=== PATIENT | female | born 1955 | race Caucasian/White ===

== ENCOUNTER → 2017-10-18 | Outpatient (CLI) | payer BC ==
[2014-11-12 15:44] VITALS: BMI 57.7
[~2017-10-18] MED LIST: ACE3 PO; ACET-3017 PO; ALBU2.5V36 INH; ALBU8.5H IH; ALLO-2 PO; ALLO100T70 PO; ASPI-1441 PO; ASPI-1471 PO; ATOR20TA65 PO; ATOR40TA69 PO; AZI250 PO; AZIT-18 PO; AZIT500T47 PO; BENZ200C15 PO; BUPR-134 PO; BUPR-149 PO; BUPR-472 PO; CALC-733 PO; CETI-169 PO; CHOL100034 PO; CHOL10005 PO; CLAR-13 PO; CPAP MC; CYCL10TA29 PO; DICL100G39 TOP; DOXY-179 PO; DOXY-181 PO; DULO30CA6 PO; ESCI10TA8 PO; FLU150 PO; FLU60SYR30 IM ONLY; FLUT16SP19 NS; FURO-45 PO; GLIM2TAB43 PO; GLIM4TAB50 PO; GLY5 PO; HYDR12.561 PO; INDO50CA92 PO; IPRA3AMP21 IH; LANI SUBQ; LANTIS; LEV100 PO; LEV125 PO; LEV500 PO; LEVO150T78 PO; LEVO750T27 PO; LIS20 PO; LISI-362 PO; LISI5TAB25 PO; LOR5/325 PO; METF-409 PO; METF-410 PO; METF-420 PO; METF500T4 PO; METH4TAB66 PO; MONT10TA4 PO; MULT-820 PO; NYST15CR32 TP; OXYC-865 PO; PRED20TA6 PO; PROM-110 PO; PROM5SYR PO; Return to Work; SIMV-54 PO; SITA50TA7; TRI40I IM; VALA100059 PO; VERIFIED; ZOST19404 IM; [UNRECOGNIZED DRUG - CODE] PO; [UNRECOGNIZED DRUG - OTHER]
== END ==
LOC: LAB 10:14
PROVIDERS: ATTEND Nurse Practitioner Family
DX: E11.9 Type 2 diabetes mellitus without complications (principal); E78.00 Pure hypercholesterolemia, unspecified; N18.9 Chronic kidney disease, unspecified; M10.9 Gout, unspecified
CPT/HCPCS: 36415; 82040; 82247; 82310; 82374; 82435; 82465; 82565; 82947; 83036; 83718; 84075; 84132; 84155; 84295; 84450; 84460; 84478; 84520; 84550

== ENCOUNTER → 2017-10-27 | Outpatient (CLI) | payer BC ==
[2014-11-12 15:44] VITALS: BMI 57.7
== END ==
LOC: LAB 15:08
PROVIDERS: ATTEND Nurse Practitioner Family
DX: E83.52 Hypercalcemia (principal)
CPT/HCPCS: 36415; 82306; 82310; 82977; 83970

== ENCOUNTER → 2018-09-12 | Outpatient (REF) ==
[2014-11-12 15:44] VITALS: BMI 57.7
[~2018-09-12] MED LIST changes: +INDO-23 PO; -INDO50CA92 PO; +IPRA3AMP10 IH; -IPRA3AMP21 IH; -METF-410 PO; -METF-420 PO; +METF-450 PO; +METF-452 PO
--- NOTE | 2018-09-12 15:53 | RADIOLOGY IMAGING REPORT ---
FACILITY: [facility] PATIENT NAME: Eneida Bey : 1955 MR: [id number] V: [id number] EXAM DATE: ORDERING PHYSICIAN: WILTON DYER TECHNOLOGIST: Location[place] [facility] [place] Patient: Eneida Bey : 1955 Visit/Account:[id number] Date of Sevice: 09/12/2018 XR WRIST 3 OR MORE VIEWS HISTORY: Bilateral carpal tunnel syndrome x20 years. Increasing lately. Additional history: None COMPARISON: None. FINDINGS: Two views of both right and left wrist demonstrate normal osseous anatomy. No degenerative changes s een in the joints. Soft tissues normal. IMPRESSION: Radiographically normal bilateral wrists. Report Dictated By: Johnie Rabago MD at 09/12/2018 3:48 PM Report E-Signed By: Johnie Rabago MD at 09/12/2018 3:49 PM WSN:[id number]
== END ==
LOC: RAD 12:44
PROVIDERS: ATTEND Family Medicine
DX: G56.03 Carpal tunnel syndrome, bilateral upper limbs (principal)

== ENCOUNTER 2018-12-21 16:18 | Emergency (ER) | payer SELFPAY ==
[2014-11-12 15:44] VITALS: Wt 136.1 kg
--- NOTE | 2018-12-21 16:23 | ER Report ---
History and Physical Time Seen By MD: 16:22 HPI/ROS CHIEF COMPLAINT: Concern about pneumonia HISTORY OF PRESENT ILLNESS: This is a 63-year-old female presents to the emergency department for concerns of pneumonia. Patient states she's had a cough for about one week, she's had aches and chills. Saw her primary care provider at the [facility] on December 19, was given azithromycin, took 500 mg daily for 3 days. Patient states no improvement. She noted her productive cough is getting worse. No chest pain or shortness of breath. Intermittent nausea with coughing. No vomiting. No diarrhea. She also states that the coughing episodes to exacerbate her ventral hernia pain that is intermittently. REVIEW OF SYSTEMS: Constitutional: As above. Eyes: No discharge. ENT: No sore throat. Cardiovascular: No chest pain, no palpitations. Respiratory: As above. Gastrointestinal: As above. Genitourinary: No hematuria. Musculoskeletal: No back pain. Skin: No rashes. Neurological: No headache. Allergies: Coded Allergies: penicillin G (Verified Allergy, Mild, 10/23/16) Home Meds Active Scripts Levofloxacin 750 Mg Tab (LEVOFLOXACIN 750 MG TAB) 750 Mg Tablet, 750 MG PO DAILY for 6 Days, #6 TAB Prov:RADHA HAYES [employer]-BC 12/21/18 Prednisone (PREDNISONE) 20 Mg Tablet, 20 MG PO BID, #10 TAB Prov:RADHA HAYES [facility] 12/21/18 Reported Medications Atorvastatin Calcium (LIPITOR) 40 Mg Tablet, 2 TAB PO QDAY, TAB 12/21/18 Gabapentin (GABAPENTIN) 300 Mg Capsule, 300 MG PO BID, CAPSULE 12/21/18 Multivitamin With Minerals (MULTIPLE VITAMIN) 1 Each Tablet, 1 EACH PO QDAY, TAB 12/21/18 Levothyroxine Sodium (LEVOTHYROXINE SODIUM) 75 Mcg Tablet, 75 MCG PO QDAY, TAB 12/21/18 Lisinopril (LISINOPRIL) 20 Mg Tablet, 20 MG PO QDAY, TAB 12/21/18 Duloxetine Hcl (CYMBALTA) 60 Mg Capsule.dr, 60 MG PO QDAY, #5 CAP 12/21/18 Cholecalciferol (Vitamin D3) (VITAMIN D3) 1,000 Unit Tablet, 1000 UNIT PO QDAY, TAB 12/21/18 Methocarbamol (METHOCARBAMOL) 750 Mg Tablet, 750 MG PO BID 12/21/18 Fluticasone Prop 50 Mcg Ns (FLONASE 50 MCG NS) 16 Gm [place].susp, 1 SPRAY NS BID, BOT 12/21/18 Albuterol Sulfate 90 Mcg/Act (PROAIR HFA 90 MCG/ACT) 8.5 Gm Hfa.aer.ad, 1-2 PUFF IH 3-4XD, INHALER 12/21/18 Discontinued Reported Medications Calcium Carbonate/Vitamin D3 (CALCIUM 500 + VIT D 400 TABLET) 1 Each Tablet, 1 EACH PO BID 07/31/17 Cholecalciferol (Vitamin D3) (VITAMIN D3) 1,000 Unit Tablet, 1000 UNIT PO DAILY, TAB 07/31/17 Aspirin (ASPIR 81) 81 Mg Tablet.dr, 1 TAB PO QDAY, TAB 05/01/14 Discontinued Scripts Acetaminophen With Codeine # 3 (TYLENOL WITH CODEINE #3 TABLET) 1 Each Tablet, 1-2 TAB PO Q6H PRN for PAIN, #60 TAB 0 Refills Prov:LE MENDOZA APRN-C 10/27/17 Glimepiride (GLIMEPIRIDE) 4 Mg Tablet, 1 TAB PO QDAY, #90 TAB 0 Refills Prov:LE MENDOZA APRN-C 10/05/17 NYSTATIN 531490 UNT/ML Topical Cream (NYSTATIN 246555 UNT/ML Topical Cream) 15 Gm Cream..g., 1 NATHALY TP TID, #60 GM 3 Refills Prov:LE MENDOZA APRN-C 10/05/17 Duloxetine HCl (Duloxetine HCl) 30 Mg Capsule., 1 CAP PO DAILY, #90 CAP 3 Refills Prov:LE MENDOAZ APRNP-C 09/18/17 Metformin Hcl (METFORMIN HCL) 500 Mg Tablet, 2 TAB PO BID, #360 TAB 0 Refills Start 1 tab daily x 1 week 1 tab twice daily x 1 weeks, 2 tabs AM and 1 tab PM x 1 week 2 tabs morning and evening Prov:LE MENDOZA APRN-C 07/31/17 Allopurinol (Allopurinol) 300 Mg Tablet, 1 TAB PO DAILY, #90 TAB 3 Refills Prov:LE MENDOZA APRN-C 07/31/17 Atorvastatin Calcium (ATORVASTATIN CALCIUM) 40 Mg Tablet, 1 TAB PO QDAY, #90 TAB 1 Refill Prov:LE MENDOZA APRNP-C 07/31/17 Zoster Vaccine Live/Pf (Zostavax Vial) 19,400 Unit/0.65 Ml Vial, 0.65 ML IM ONCE, #1 VIAL 0 Refills Prov:LE MENDOZA APRN-C 06/09/17 Lisinopril (LISINOPRIL) 10 Mg Tablet, 1 TAB PO QDAY, #90 TAB 3 Refills Prov:LE MENDOZA APRNP-C 04/14/17 Diclofenac Sodium 1% Gel (VOLTAREN 1% GEL) 100 Gm Gel..gram., 2 GM TOP QID, #100 GM 2 Refills Apply to right foot 4 times daily as needed for pain Prov:LE MENDOZA APRN-Calixto 12/12/16 Levothyroxine Sodium (LEVOTHYROXINE SODIUM) 150 Mcg Tablet, 150 MCG PO QDAY, #90 TAB 3 Refills Prov:GALLITO RAMON MD 11/10/16 Cpap (CPAP HOME) Inha, UNIT , #1 Prov:LE MENDOZA APRNP-C 08/17/15 Past Medical/Surgical History The patient has a past medical and surgical history of cardiac megaly, hypertension, uses CPAP, pneumonia, GERD, kidney stones, wears glasses, type II diabetes, cholecystectomy, bariatric surgery. Reviewed Nurses Notes: Yes Hx Smoking: Yes Smoking Status: Former Smoker Exposure to Second Hand Smoke?: Yes Hx Substance Use Disorder: No Hx Alcohol Use: No Constitutional Vital Sign - Last 24 Hours 12/21/18 12/21/18 12/21/18 12/21/18 16:22 16:25 16:48 16:53 Temp 97.5 Pulse 61 63 60 Resp 24 17 B/P (MAP) 148/72 148/72 (97) Pulse Ox 89 95 O2 Delivery Room Air 12/21/18 12/21/18 12/21/18 12/21/18 16:53 17:01 17:18 17:19 Pulse 69 86 Resp 17 B/P (MAP) 118/70 (86) Pulse Ox 93 96 O2 Delivery Nasal Cannula O2 Flow Rate 2.0 12/21/18 18:08 B/P (MAP) 124/75 (91) Pulse Ox 96 Physical Exam General Appearance: The patient is alert, has no immediate need for airway protection and no signs of toxicity. Eyes: Pupils equal and round no pallor or injection. ENT, Mouth: Mucous membranes are moist. Respiratory: Diminished in bilateral bases, and expiratory wheezes throughout mildly rhonchorous in the right lower field. Cardiovascular: Regular rate and rhythm, no murmurs, clicks or rubs. Gastrointestinal: Abdomen is soft and non tender, no masses, bowel sounds normal. Neurological: Alert and oriented 4. Moving all extremities. Following all commands. No focal neurodeficits. Skin: Warm and dry, no rashes. Musculoskeletal: Neck is supple non tender. Extremities are nontender, nonswollen and have full range of motion. DIFFERENTIAL DIAGNOSIS: After history and physical exam differential diagnosis was considered for CHF, pneumonia, bronchitis, pulmonary embolus. Medical Decision Making EKG/Imaging Imaging ATIENT NAME: Eneida Bey : 1955 MR: [id number] V: [id number] EXAM DATE: ORDERING PHYSICIAN: RADHA HAYES TECHNOLOGIST: Location: [facility] - [place] Patient: Eneida Bey : 1955 Visit/Account:[id number] Date of Sevice: 12/21/2018 Chest with lateral, 2 views. HISTORY: Productive cough. COMPARISON: 07/10/2016. The heart is mildly enlarged. Pulmonary vessels are normal. Patchy and streaky opacities are present in the right lower lung and left upper lung, partially obscuring the pulmonary aamir bilaterally. No pleural fluid. Degenerative changes are present in the spine. Surgical clips are present in the right upper abdomen. IMPRESSION: Bilateral lung consolidation consistent with pneumonia. Follow-up radiographs should be considered to document complete resolution, and exclude underlying neoplasm. Mild cardiomegaly without teddy congestive heart failure. Report Dictated By: Giorgio Maya MD at 12/21/2018 5:14 PM Report E-Signed By: Giorgio Maya MD at 12/21/2018 5:18 PM WSN:[id number] ED Course/Re-evaluation ED Course The patient was admitted to a room. A history of physical were obtained. Differential was considered. Patient was given a DuoNeb with significant improvement of her aeration and oxygenation. The chest x-ray showing a bilateral pneumonia, did review the results with the patient. She did have outpatient failure of azithromycin, she is not febrile, she is not hypotensive, not tachycardic, not toxic appearing, I do feel that she is safe to go home she does have oxygen at home that she can use as well, I discussed this with the patient, she does feel that she is okay to go home as well. Patient was started on Levaquin in the emergency department. She was also given a prescription for Levaquin and prednisone. The patient had no other questions or concerns at this time discharged home. Decision to Disposition Date: December 21, 2018 Decision to Disposition Time: 17:36 Depart Departure Latest Vital Signs Vital Signs Date Time Temp Pulse Resp B/P (MAP) Pulse Ox O2 Delivery O2 Flow Rate FiO2 12/21/18 18:08 124/75 (91) 96 12/21/18 17:18 86 12/21/18 17:01 17 12/21/18 16:53 Nasal Cannula 2.0 12/21/18 16:22 97.5 Impression: Primary Impression: Pneumonia Condition: Improved Disposition: HOME OR SELF-CARE Referrals: LE MENDOZA APRNP-C (PCP) WILTON PATTEN MD 5 Days New Scripts Levofloxacin 750 Mg Tab (LEVOFLOXACIN 750 MG TAB) 750 Mg Tablet 750 MG PO DAILY for 6 Days, #6 TAB Prov: RADHA HAYES [employer]- 12/21/18 Prednisone (PREDNISONE) 20 Mg Tablet 20 MG PO BID, #10 TAB Prov: RADHA HAYES [facility]- 12/21/18 Patient Instructions: Community Acquired Pneumonia (ED) Additional Instructions: Please use your oxygen as scheduled. Please use your nebulizer machine with the medication every 4 hours as needed. Use your inhaler as needed for shortness of breath. As you have failed with Azithromycin, Starting you on Levofloxacin 750mg, take this once a day. Take the prednisone as prescribed. Please follow up with Dr. Patten next Monday, you will need repeat and follow up Xrays. Get plenty of rest. Return to the ED for any other concerns or worsening symptoms. Problem Qualifiers Primary Impression: Pneumonia Pneumonia type: due to unspecified organism Laterality: bilateral Lung location: unspecified part of lung Qualified Codes: J18.9 - Pneumonia, unspecified organism RADHA HAYESP- December 21, 2018 16:23
[2018-12-21] MEDS ORDERED: MULT-1335 PO (16:39)
[2018-12-21] MEDS ORDERED: FLUT16SP19 NS (16:39)
[2018-12-21] MEDS ORDERED: DULO60CA56 PO (16:39)
[2018-12-21] MEDS ORDERED: METH-280 PO (16:39)
[2018-12-21] MEDS ORDERED: LISI20TA29 PO (16:39)
[2018-12-21] MEDS ORDERED: ATOR40TA24 PO (16:39)
[2018-12-21] MEDS ORDERED: ALBU8.5H IH (16:39)
[2018-12-21] MEDS ORDERED: CHOL10005 PO (16:39)
[2018-12-21] MEDS ORDERED: LEVO75TA73 PO (16:39)
[2018-12-21] MEDS ORDERED: GABA-549 PO (16:39)
[2018-12-21] MEDS ORDERED: ALBUTEROL/IPRATROPIUM 3 ML NEB NEB ONE (16:40)
--- NOTE | 2018-12-21 17:22 | RADIOLOGY IMAGING REPORT ---
FACILITY: [facility] - [place] PATIENT NAME: Eneida Bey : 1955 MR: [id number] V: [id number] EXAM DATE: ORDERING PHYSICIAN: RADHA HAYES TECHNOLOGIST: Location: [facility] [place] Patient: Eneida Bey : 1955 Visit/Account:[id number] Date of Sevice: 12/21/2018 Chest with lateral, 2 views. HISTORY: Productive cough. COMPARISON: 07/10/2016. The heart is mildly enlarged. Pulmonary vessels are normal. Patchy and streaky opacities are present in the right lower lung and left upper lung, partially obscuring the pulmonary aamir bilaterally. No p leural fluid. Degenerative changes are present in the spine. Surgical clips are present in the right upper abdomen. IMPRESSION: Bilateral lung consolidation consistent with pneumonia. Follow-up radiographs should be considered to document complete resolution, and exclude underlying neoplasm. Mild cardiomegaly without teddy congestive heart failure. Report Dictated By: Giorgio Maya MD at 12/21/2018 5:14 PM Report E-Signed By: Giorgio Maya MD at 12/21/2018 5:18 PM WSN:[id number]
[2018-12-21] MEDS ORDERED: LEVOFLOXACIN 750 MG TAB PO ONE (17:35)
[2018-12-21] MEDS ORDERED: predniSONE 20 MG TAB PO ONE (17:35)
[2018-12-21] MEDS ORDERED: PRED20TA6 PO (17:44)
[2018-12-21] MEDS ORDERED: LEVO750T27 PO (17:44)
[2018-12-21 18:08] VITALS: BP 124/75
== END 2018-12-21 18:09 | disposition home or self-care (01) ==
LOC: ER 16:21
DX: J18.9 Pneumonia, unspecified organism (principal)
CPT/HCPCS: 71046; 94640; 99283; J7512; J7620

== ENCOUNTER → 2019-01-04 | Outpatient (REF) ==
[2014-11-12 15:44] VITALS: BMI 57.7
[~2019-01-04] MED LIST changes: +ATOR40TA24 PO; +DULO60CA56 PO; +GABA-549 PO; +LEVO75TA73 PO; +LISI20TA29 PO; +METH-280 PO; +MULT-1335 PO
--- NOTE | 2019-01-04 14:05 | EKG ---
FACILITY: [facility] - [place] PATIENT NAME: NUSRAT YANG : [id number] MR: [id number] V: [id number] EXAM DATE: [id number] ORDERING PHYSICIAN: FREEMAN DSOUZA TECHNOLOGIST: EARNEST Test Reason : IRREG HR Blood Pressure : / mmHG Vent. Rate : 063 BPM Atrial Rate : 063 BPM P-R Int : 152 ms QRS Dur : 096 ms QT Int : 388 ms P-R-T Axes : 052 077 038 degrees QTc Int : 397 ms Sinus rhythm with PAC Otherwise normal ECG When compared with ECG of 11-OCT-2015 13:11, premature ventricular complexes are no longer present Confirmed by MOHSEN GOLDBERG ([id number]) on 01/04/2019 2:26:29 PM Referred By: LIANNA Confirmed By:MOHSEN GOLDBERG
== END ==
LOC: RESP 13:50
PROVIDERS: ATTEND Nurse Practitioner
DX: I49.9 Cardiac arrhythmia, unspecified (principal)
CPT/HCPCS: 93005

== ENCOUNTER → 2019-03-22 | Outpatient (REF) ==
[2014-11-12 15:44] VITALS: BMI 57.7
--- NOTE | 2019-03-22 10:25 | EKG ---
FACILITY: [facility] PATIENT NAME: NUSRAT YANG : [id number] MR: [id number] V: [id number] EXAM DATE: ORDERING PHYSICIAN: SUKUMAR NOYOLA TECHNOLOGIST: EARNEST Test Reason : SOB Blood Pressure : / mmHG Vent. Rate : 051 BPM Atrial Rate : 051 BPM P-R Int : 156 ms QRS Dur : 104 ms QT Int : 438 ms P-R-T Axes : 060 082 028 degrees QTc Int : 403 ms Sinus bradycardia with premature atrial complexes Otherwise normal ECG When compared with ECG of 04-JAN-2019 13:58, Unchanged Confirmed by MOHSEN GOLDBERG ([id number]) on 03/22/2019 2:00:54 PM Referred By: Saundra NOYOLA Confirmed By:MOHSEN GOLDBERG
--- NOTE | 2019-03-22 14:06 | RADIOLOGY IMAGING REPORT ---
FACILITY: [facility] - [place] PATIENT NAME: Eneida Bey : 1955 MR: [id number] V: [id number] EXAM DATE: ORDERING PHYSICIAN: JESSEE SANCHEZ TECHNOLOGIST: Location: [facility] Patient: Eneida Bey : 1955 Visit/Account:[id number] Date of Sevice: 03/22/2019 Exam type: CHEST PA LAT History: Bradycardia and shortness of breath Comparison: December 21, 2018. Findings: There is a small amount of linear stranding in the right lower lobe in the location of the previously noted infiltrate. This may represent an area of residual scarring although lingering infiltrate not totally excluded Small band of scarring versus atelectasis left lower lobe. Mild pleural thickening is noted bilaterally. There is no evidence of acute appearing infiltrates pleural effusions or over t pulmonary edema. Cardiac silhouette appears normal. IMPRESSION: 1. Linear stranding the right lower lobe is in the location of the previously noted infiltrate. Thi s may represent an area of residual scarring although lingering infiltrate not totally excluded Scarring versus atelectasis left lower lobe Report Dictated By: Kristin Brink MD at 03/22/2019 1:33 PM Report E-Signed By: Kristin Brink MD at 03/22/2019 1:57 PM WSN:[email or web address]
== END ==
LOC: MAMO 02-26 00:45 → RESP 10:10
PROVIDERS: ATTEND Surgery
DX: R06.02 Shortness of breath (principal); R00.1 Bradycardia, unspecified
CPT/HCPCS: 71046; 93005